=== PATIENT | female | born 1945 | race Caucasian/White ===

== ENCOUNTER → 2020-08-10 10:15 | Outpatient (BNVA) | payer MEDICARE, OTHER, SELFPAY | PROVIDERS: PCP Nurse Practitioner Family; Visit Provider Nurse Practitioner Family | DX: Z11.59 Encounter for screening for other viral diseases (principal); Z20.828 Contact with and (suspected) exposure to other viral communicable diseases; J06.9 Acute upper respiratory infection, unspecified | CPT/HCPCS: 87635 ==

== ENCOUNTER → 2025-06-09 09:57 | Outpatient (BNVA) | payer MEDICARE, OTHER, SELFPAY | PROVIDERS: PCP Nurse Practitioner Family; Visit Provider Anesthesiology Pain Medicine | DX: M54.9 Dorsalgia, unspecified (principal); M43.26 Fusion of spine, lumbar region | CPT/HCPCS: 99203 ==

== ENCOUNTER 2025-06-16 15:50 | Outpatient (CLI) | payer MEDICARE, OTHER, SELFPAY ==
--- NOTE | 2025-06-16 16:00 | MR_ITS ---
WS: [id number] MRI LUMBAR SPINE NONCONTRAST TECHNIQUE: Sagittal T1, T2 and STIR imaging. Axial T1 and T2 imaging. CLINICAL INFORMATION: M54.16 - Radiculopathy, lumbar region COMPARISON: MRI 2011 FINDINGS: Postoperative changes are new since 2011. Mild lumbar curve. Postoperative changes pedicle screw fixation with interbody fusion L4-5. L1-L2: Mild annular bulging. Slight narrowing of the RIGHT subarticular recess. Mild facet arthropathy. L2-L3: Small RIGHT foraminal protrusion with slight impingement on the exiting RIGHT L2 nerve root. Mild facet arthropathy. L3-L4: Mild annular bulging with mild central canal stenosis. Narrowing of the subarticular recess bilaterally. Small bilateral foraminal protrusions with mild bilateral foraminal narrowing. L4-L5: Pedicle screw fixation. Interbody fusion. Laminectomy defects. Spinal canal is patent. Mild LEFT foraminal narrowing. L5-S1: Disc space narrowing with endplate ridging. Mild facet arthropathy. Moderate RIGHT and mild LEFT foraminal narrowing. Slight contact of the RIGHT S1 nerve root. Visualized pelvic bony structures: Normal. Paravertebral soft tissues: Normal. Small RIGHT renal cysts. MR/MR lumbar spine wo con* [id number] IMPRESSION: 1. Pedicle screw fixation L4-5 laminectomy defects and interbody fusion L4-5. 2. Small RIGHT foraminal protrusion L2-3 impinges the exiting RIGHT L2 nerve r oot. 3. Mild central canal stenosis L3-4 with narrowing of the subarticular recess bilaterally. 4. Small bilateral foraminal protrusions L3-4 with mild RIGHT greater than LEF T foraminal narrowing. 5. Spinal canal is patent at L4-L5 and L5-S1. 6. Mild LEFT L4-5 bony foraminal narrowing. 7. Moderate RIGHT and mild LEFT bony foraminal narrowing L5-S1. 8. Disc osteophyte complex L5-S1 slightly contacts the RIGHT S1 nerve root.
--- NOTE | 2025-06-16 16:09 | XRR_ITS ---
PROCEDURE INFORMATION: Exam: XR Lumbosacral Spine Exam date and time: 06/16/2025 4:45 PM Age: 79 years old Clinical indication: Low back pain; Prior surgery; Surgery date: 6+ months; Surgery type: L spine; Additional info: M54.50 - low back pain, unspecified TECHNIQUE: Imaging protocol: Radiologic exam of the lumbosacral spine. Views: 4 or 5 views. COMPARISON: MR lumbar spine wo con* [id number] 06/16/2025 4:13 PM FINDINGS: Bones/joints: No spine curvature seen. The normal lumbar lordosis is maintained, with grade 1 anterolisthesis of L3 on L4, and trace retrolisthesis of L5. The patient is status post L4-L5 intervertebral disc replacement and fusion of L4-L5 and L5-S1 spinous processes. No fracture identified. Vertebral body heights are well preserved. There are multilevel degenerative changes, manifested by intervertebral disc space narrowing, endplate osteophytes and facet joint arthrosis. Soft tissues: Unremarkable. XR/XR lumbar spine min 4V [id number] IMPRESSION: 1. No acute injury. 2. Degenerative changes of the lumbar spine.
--- NOTE | 2025-06-16 16:09 | XRR_ITS ---
PROCEDURE INFORMATION: Exam: XR Bilateral Hips Exam date and time: 06/16/2025 4:45 PM Age: 79 years old Clinical indication: Hip pain; Bilateral; Additional info: M16.9 - osteoarthritis of hip, unspecified TECHNIQUE: Imaging protocol: Radiologic exam of the bilateral hips. Views: 2 views of hips with pelvis when performed. COMPARISON: CR XR lumbar spine min 4V [id number] 06/16/2025 4:45 PM FINDINGS: Bones/joints: No fracture or dislocation. There are mild degenerative changes of the right hip, manifested by small periarticular osteophytes. Soft tissues: Normal. XR/XR hip BI 2V wo/w pel [id number] IMPRESSION: 1. No fracture or dislocation. 2. Mild bilateral hip osteoarthrosis.
== END 2025-06-16 15:51 | disposition home or self-care (01) ==
LOC: RAD 15:54
PROVIDERS: PCP Nurse Practitioner Family; Visit Provider Anesthesiology Pain Medicine
DX: M16.0 Bilateral primary osteoarthritis of hip (principal); M54.16 Radiculopathy, lumbar region; M47.896 Other spondylosis, lumbar region; M43.26 Fusion of spine, lumbar region; Z98.1 Arthrodesis status; M46.96 Unspecified inflammatory spondylopathy, lumbar region; Z96.89 Presence of other specified functional implants; M99.63 Osseous and subluxation stenosis of intervertebral foramina of lumbar region; M96.1 Postlaminectomy syndrome, not elsewhere classified; M48.07 Spinal stenosis, lumbosacral region; M51.370 Other intervertebral disc degeneration, lumbosacral region with discogenic back pain only; M25.78 Osteophyte, vertebrae
CPT/HCPCS: 72110; 72148; 73521

== ENCOUNTER → 2025-06-17 10:42 | Outpatient (BNVA) | payer MEDICARE, OTHER, SELFPAY | PROVIDERS: PCP Nurse Practitioner Family; Visit Provider Anesthesiology Pain Medicine | DX: M79.18 Myalgia, other site (principal); M54.9 Dorsalgia, unspecified; M43.26 Fusion of spine, lumbar region | CPT/HCPCS: 20553; 99214; J1010; J3490 ==

== ENCOUNTER → 2025-08-18 09:13 | Outpatient (BNVA) | payer MEDICARE, OTHER, SELFPAY | PROVIDERS: Visit Provider Anesthesiology Pain Medicine | DX: M79.18 Myalgia, other site (principal); M54.9 Dorsalgia, unspecified; M43.26 Fusion of spine, lumbar region | CPT/HCPCS: 20553; 99214; J1010; J3490 ==

== ENCOUNTER → 2025-08-20 10:30 | Outpatient (BNVA) | payer MEDICARE, OTHER, SELFPAY | PROVIDERS: Visit Provider Specialist | DX: M19.011 Primary osteoarthritis, right shoulder (principal); M19.012 Primary osteoarthritis, left shoulder | CPT/HCPCS: 20610; 73030; 99204; J1100; J2795; J3301; J9999 ==